=== PATIENT | male | born 1955 | race Caucasian/White ===

== ENCOUNTER → 2020-11-05 | Outpatient (CLI) | payer OTHER ==
--- NOTE | 2020-11-05 21:35 | REPVR ---
PROCEDURE INFORMATION: Exam: CT Temporal Bones Without Contrast. Exam date and time: 11/05/2020 11:01 AM Age: 65 years old Clinical indication: Pain; Other: Eustachian tube disorder; Prior surgery; Surgery date: 6+ months; Surgery type: Tubes TECHNIQUE: Imaging protocol: Computed tomography images of the temporal bones without contrast. Radiation optimization: All CT scans at this facility use at least one of these dose optimization techniques: automated exposure control; mA and/or kV adjustment per patient size (includes targeted exams where dose is matched to clinical indication); or iterative reconstruction. COMPARISON: No relevant prior studies available. FINDINGS: Right inner ear: Normal. Right ossicles and middle ear: Normal. The middle ear ossicles are intact. Right external auditory canal: Normal. Right facial nerve canal: Normal. Right jugular foramen: No jugular dehiscence. Right carotid canal: No aberrant carotid canal. Right mastoid air cells: Normal. No mastoid effusions. Left inner ear: Normal. Left ossicles and middle ear: Normal. The middle ear ossicles are intact. Left external auditory canal: Normal. Left facial nerve canal: Normal. Left jugular foramen: No jugular dehiscence. Left carotid canal: No aberrant carotid canal. Left mastoid air cells: Normal. No mastoid effusions. Paranasal sinuses: Moderate mucosal thickening of the right maxillary and ethmoid sinuses. Left maxillary sinus retention cysts. Soft tissues: Unremarkable. IMPRESSION: 1. No acute findings in the temporal bones. 2. Moderate mucosal thickening of the right maxillary and ethmoid sinuses. Electronically signed by: Stevie Negron On 11/05/2020 21:35:08 PM
== END ==
LOC: M RAD 10:42
PROVIDERS: ATTEND Otolaryngology
DX: H69.92 Unspecified Eustachian tube disorder, left ear (principal)

== ENCOUNTER → 2021-02-11 | Outpatient (CLI) | payer OTHER ==
[~2021-02-11] MED LIST: CHAR280C PO; LISI20TA33 PO; SIME180C25 PO
--- NOTE | 2021-02-11 12:58 | REPVR ---
PROCEDURE INFORMATION: Exam: CT Maxillofacial Without Contrast, Sinus Exam date and time: 02/11/2021 12:42 PM Age: 65 years old Clinical indication: Sinusitis; Type not specified; Additional info: Chronic maxillary sinusitis TECHNIQUE: Imaging protocol: CT Maxillofacial without contrast. Focus on the sinuses. Radiation optimization: All CT scans at this facility use at least one of these dose optimization techniques: automated exposure control; mA and/or kV adjustment per patient size (includes targeted exams where dose is matched to clinical indication); or iterative reconstruction. COMPARISON: CT IAC W/O CONTRAST 11/05/2020 11:01 AM FINDINGS: Frontal sinuses: There is mild mucosal thickening along the floor of the left frontal sinus. No air-fluid levels. Ethmoid air cells: Normal. No air-fluid levels. Sphenoid sinuses: Normal. No air-fluid levels. Maxillary sinuses: There is mild mucosal thickening along the floors of the maxillary sinuses, left greater than right. No air-fluid levels. Ostiomeatal units are patent. Nasal cavity/Septum: There is rightward nasal septal deviation with a spur. There is a jada bullosa of the left middle turbinate. Orbital cavity: Orbits are normal. Globes are unremarkable. Bones/joints: Unremarkable. Soft tissues: Unremarkable. IMPRESSION: Mild sinus mucosal disease. Electronically signed by: Arabella Flower On 02/11/2021 12:57:45 PM
== END ==
LOC: M RAD 12:29
PROVIDERS: ATTEND Otolaryngology
DX: J32.0 Chronic maxillary sinusitis (principal)

== ENCOUNTER → 2022-08-04 | Outpatient (CLI) | payer OTHER ==
[2022-08-04 17:22] LABS: ALKALINE PHOSPHATASE 69 U/L (46-116); ALT/SGPT 119 U/L (7.0-40); AST/SGOT 85 U/L (<34); BILIRUBIN,DIRECT 0.3 MG/DL (<0.4); BILIRUBIN,TOTAL 0.6 MG/DL (0.3-1.2); IMMUNOGLOBULIN A 130.9 MG/DL (40-350); IRON (FE) 151 UG/DL (65-175); PERCENT SATURATION 56.1 % (19.7-50.0); TOTAL IRON BINDING CAPACITY 269 UG/DL (250-425); TOTAL PROTEIN 6.7 G/DL (5.7-8.2)
[2022-08-04 17:35] LABS: HEPATITIS B SURFACE ANTIGEN NEGATIVE (NEGATIVE)
[2022-08-04 17:57] LABS: HEPATITIS B CORE ANTIBODY IGM NEGATIVE (NEGATIVE)
[2022-08-09 16:08] LABS: ALPHA 1 ANTITRYPSIN 143 mg/dL (101-187); ANCA-ATYPICAL <1:20 titer (Neg:<1:20); ANTI-MITOCHONDRIAL ANTIBODY <20.0 Units (0.0-20.0); ANTINUCLEAR ANTIBODIES DIRECT Negative (Negative); CYTOPLASMIC NEUTROP AB ANCA-C <1:20 titer (Neg:<1:20); LIVER-KIDNEY MICROSOMAL ABY <20.1 Units (0.0-20.0); PERINUCLEAR AB ANCA-P <1:20 titer (Neg:<1:20); TISSUE TRANSGLUTAMINASE IgA <2 U/mL (0-3)
== END ==
LOC: M WUC 12:25
PROVIDERS: ATTEND Internal Medicine Gastroenterology
DX: R74.01 Elevation of levels of liver transaminase levels (principal)

== ENCOUNTER → 2022-08-24 | Outpatient (CLI) | payer OTHER | LOC: M RAD 09:04 | PROVIDERS: ATTEND Internal Medicine Gastroenterology | DX: R74.01 Elevation of levels of liver transaminase levels (principal) ==

== ENCOUNTER 2022-09-22 09:00 | Day surgery (SDC) | payer OTHER ==
[~2022-09-22] VITALS: Ht 172.7 cm; Wt 88.1 kg
[~2022-09-22 09:00] MED LIST changes: +LIDOCAINE 2% 100MG/5ML SDV (FOR ANES.) As Ordered ONE; +NS 1,000 ML IV ONE; +propofoL 200 MG/20 ML VIAL As Ordered ONE
[2022-09-22] MEDS ORDERED: GLYCOPYRROLATE INJ 0.2 MG/ML 2 ML VIAL As Ordered ONE (11:24)
[2022-09-22] MEDS ORDERED: propofoL 200 MG/20 ML VIAL As Ordered ONE (11:25)
[2022-09-22 12:26] VITALS: BP 163/82; TEMP 97.3; O2SAT 95
== END 2022-09-22 12:32 | disposition home or self-care (01) ==
LOC: M OPP 09:00
PROVIDERS: ATTEND Internal Medicine Gastroenterology
DX: Z80.0 Family history of malignant neoplasm of digestive organs (principal); D12.0 Benign neoplasm of cecum; D12.3 Benign neoplasm of transverse colon; D12.1 Benign neoplasm of appendix; D12.5 Benign neoplasm of sigmoid colon; K64.8 Other hemorrhoids; K57.30 Diverticulosis of large intestine without perforation or abscess without bleeding; Z79.899 Other long term (current) drug therapy

== ENCOUNTER 2022-12-23 10:25 | Day surgery (SDC) | payer OTHER ==
[~2022-12-23] VITALS: Ht 172.7 cm; Wt 90.3 kg
[~2022-12-23 10:25] MED LIST changes: -LIDOCAINE 2% 100MG/5ML SDV (FOR ANES.) As Ordered ONE; -NS 1,000 ML IV ONE; +ceFAZolin SOD 2 GM in IV 1 EA IV ONE; -propofoL 200 MG/20 ML VIAL As Ordered ONE
[2022-12-23] MEDS ORDERED: LR 1,000 ML IV SCH ×2 (11:10→13:30)
[2022-12-23] MEDS ORDERED: propofoL 200 MG/20 ML VIAL As Ordered ONE (12:22)
[2022-12-23] MEDS ORDERED: fentaNYL 100 MCG/2 ML INJECTION As Ordered ONE ×2 (12:22→12:50)
[2022-12-23] MEDS ORDERED: dexmedeTOMIDine (4MCG/ML)200MCG/50ML BTL (PRECEDEX) As Ordered ONE (12:22)
[2022-12-23] MEDS ORDERED: ONDANSETRON 4MG 2ML VIAL As Ordered ONE (12:22)
[2022-12-23] MEDS ORDERED: ROCURONIUM BROMIDE 50MG/5ML VIAL As Ordered ONE (12:22)
[2022-12-23] MEDS ORDERED: LIDOCAINE 2% 100MG/5ML SDV (FOR ANES.) As Ordered ONE (12:22)
[2022-12-23] MEDS ORDERED: MIDAZOLAM INJ 2MG/2ML VIAL As Ordered ONE (12:22)
[2022-12-23] MEDS ORDERED: KETOROLAC 60MG 2ML VIAL As Ordered ONE (12:22)
[2022-12-23] MEDS ORDERED: SUGAMMADEX SODIUM 500 MG/5 ML VIAL (BRIDION) As Ordered ONE (12:23)
[2022-12-23] MEDS ORDERED: ACETAMINOPHEN 1000MG 100ML IV BAG As Ordered ONE (12:37)
[2022-12-23] MEDS ORDERED: fentaNYL 100 MCG/2 ML INJECTION IV PRN (13:30)
[2022-12-23] MEDS ORDERED: ONDANSETRON 4MG 2ML VIAL IV PRN (13:30)
[2022-12-23] MEDS ORDERED: oxyCODONE 5MG TAB PO PRN (13:30)
[2022-12-23] MEDS ORDERED: traMADol 50 MG TAB PO PRN (13:45)
[2022-12-23] MEDS ORDERED: NS 1,000 ML IV SCH (13:45)
[2022-12-23 14:50] VITALS: BP 154/81; TEMP 97.2; O2SAT 96
== END 2022-12-23 14:51 | disposition home or self-care (01) ==
LOC: M SDC 10:25
PROVIDERS: ATTEND Surgery
DX: K63.5 Polyp of colon (principal); I10 Essential (primary) hypertension; Z79.899 Other long term (current) drug therapy
CPT/HCPCS: 44970; 88304; 93005; J0131; J0665; J0690; J1100; J1885; J2250; J2405; J3010

== ENCOUNTER → 2024-06-03 | Outpatient (REF) | payer OTHER ==
[~2024-06-03] MED LIST changes: -SIME180C25 PO; +SIME1CAP4 PO; -ceFAZolin SOD 2 GM in IV 1 EA IV ONE
== END ==
LOC: M SFHCDERM 08:22
PROVIDERS: ATTEND Nurse Practitioner Family
DX: D48.9 Neoplasm of uncertain behavior, unspecified (principal); L91.8 Other hypertrophic disorders of the skin